=== PATIENT | male | born 1990 | race Hispanic/Latino ===

== ENCOUNTER 2019-01-15 10:43 | Emergency (ER) | payer SELFPAY ==
[2019-01-15] MEDS ORDERED: KETOROLAC TROMETHAMINE 60 MG/2 ML VIAL ONE (10:54)
[2019-01-15] MEDS ORDERED: DEXAMETHASONE SOD PHOSPHATE 10MG/ML 1ML VIAL ONE (10:54)
== END 2019-01-15 11:45 | disposition home or self-care (01) ==
LOC: EDH 10:43
DX: S33.5XXA Sprain of ligaments of lumbar spine, initial encounter (principal); X58.XXXA Exposure to other specified factors, initial encounter; Y93.89 Activity, other specified; Y92.89 Other specified places as the place of occurrence of the external cause; Y99.8 Other external cause status
CPT/HCPCS: 96372 ×2; 99283; J1100; J1885

== ENCOUNTER 2019-05-22 13:12 | Emergency (ER) | payer SELFPAY | END 2019-05-22 15:05 | disposition home or self-care (01) | LOC: EDH 13:12 | DX: K02.9 Dental caries, unspecified (principal); K04.7 Periapical abscess without sinus; Z72.0 Tobacco use ==